=== PATIENT | male | born 2000 | race Native Hawaiian/Other Pacific Islander ===

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

== ENCOUNTER 2021-02-02 15:05 | Outpatient (CLI) | payer OTHER | END 2021-02-02 21:06 | disposition home or self-care (01) | LOC: RAD 15:05 | PROVIDERS: ATTEND Nurse Practitioner Family | DX: M54.59 Other low back pain (principal) ==

== ENCOUNTER 2021-04-09 11:59 | Outpatient (CLI) | payer OTHER | END 2021-04-09 21:22 | disposition home or self-care (01) | LOC: RAD 11:59 | PROVIDERS: ATTEND Nurse Practitioner Family | DX: R06.00 Dyspnea, unspecified (principal) ==

== ENCOUNTER 2022-07-17 22:06 | Emergency (ER) | payer OTHER ==
[~2022-07-17] VITALS: Ht 185.4 cm; Wt 72.6 kg
[2022-07-17 23:50] VITALS: BP 136/75; TEMP 98.3
== END 2022-07-17 23:45 | disposition home or self-care (01) ==
LOC: ED 22:06
DX: S61.051A Open bite of right thumb without damage to nail, initial encounter (principal); W59.11XA Bitten by nonvenomous snake, initial encounter; F17.290 Nicotine dependence, other tobacco product, uncomplicated
CPT/HCPCS: 96372; 99283; J0696